=== PATIENT | female | born 1995 | race Caucasian/White ===

== ENCOUNTER 2017-09-09 15:50 | Inpatient (IN) ==
[2017-09-10] MEDS ORDERED: Acetaminophen 325 MG Tablet PO PRN (00:11)
--- NOTE | 2017-09-10 01:47 | P.HPIM ---
History of Present Illness Primary Care Physician: UNKNOWN History of Present Illness: 22 y/o female with a history of MR and autism presented to the ED after have a seizure. Due to patient's autism, history was taken from mom who is at the bedside. She states the patient was at an adult learning class when she fell out of the chair and had a 13 min seizure. When the patient came too she was very lethargic so she brought her to the ED for evaluation. She did have loss of bladder control at the time and 3 episodes of emesis. Mom states it is very hard for the patient to express how she is feeling, so it is unsure if she has any pain. Mom denies any history of seizures. Upon examination patient is sleeping and due to her autism mom asked not to wake her. ROS is limited. Review of Systems unobtainable due to mental condition PMFSH - History History Provided By: Patient - Medical History Medical History: Medical History (Last Reviewed 09/09/17 @ 18:19 by ELLA Real) Autism OCD (obsessive compulsive disorder) Tourette disease - Tobacco History Second Hand Smoke Exposure: No Smoking Status: Never smoker - Alcohol History How Often Do You Have a Drink Containing Alcohol: Never - Substance Use History Substance History: No History of Abuse Medications and Allergies Active Medications: Active Medications Acetaminophen (Tylenol) 650 mg PO Q4H PRN PRN Reason: Temp > 100.4 Lorazepam (Ativan Inj) 1 mg IV.PUSH Q2H PRN PRN Reason: SEIZURES Ondansetron HCl (Zofran Inj) 4 mg IV.PUSH Q6H PRN PRN Reason: NAUSEA OR VOMITING Allergies Allergy/AdvReac Type Severity Reaction Status Date / Time clindamycin Allergy Unknown Verified 09/09/17 16:09 Home Medications Medication Instructions Recorded Confirmed Type Loestrin 1.5 (21) 09/09/17 History Probiotic 09/09/17 History venlafaxine 100 mg PO BID 09/09/17 09/09/17 History Exam Vital signs: Vital Signs 09/10/17 00:00 Temperature 98.1 F Pulse Rate 89 Respiratory Rate 16 Blood Pressure 121/80 Pulse Oximetry 99 Narrative: GENERAL: This is a well-nourished, well-developed patient, who is sleeping SKIN: Warm, dry and intact, no open wounds CARDIOVASCULAR: Regular rate and rhythm without murmurs, gallops, or rubs. RESPIRATORY: Clear to auscultation. No wheezes, rales, or rhonchi. GASTROINTESTINAL: Abdomen soft, distended. MUSCULOSKELETAL: Extremities without clubbing, cyanosis, or edema. NEURO: Autistic. Moves all ext x4 Caprini VTE Risk Assessment Caprini VTE Risk Assessment: No/Low Risk (score <= 1) Caprini Risk Assessment Model: Point Value = 1 Point Value = 2 Point Value = 3 Point Value = 5 Age 41-60 Minor surgery BMI > 25 kg/m2 Swollen legs Varicose veins or History of unexplained or recurrent spontaneous Oral contraceptives or hormone replacement Sepsis (< 1 month) Serious lung disease, including pneumonia (< 1 month) Abnormal pulmonary function Acute myocardial infarction Congestive heart failure (< 1 month) History of inflammatory bowel disease Medical patient at bed rest Age 61-74 Arthroscopic surgery Major open surgery (> 45 min) Laparoscopic surgery (> 45 min) Malignancy Confined to bed (> 72 hours) Immobilizing plaster cast Central venous access Age >= 75 History of VTE Family history of VTE Factor V Leiden Prothrombin [id number] Lupus anticoagulant Anticardiolipin antibodies Elevated serum homocysteine Heparin-induced thrombocytopenia Other congenital or acquired thrombophilia Stroke (< 1 month) Elective arthroplasty Hip, pelvis, or leg fracture Acute spinal cord injury (< 1 month) Prophylaxis Regimen: Total Risk Factor Score Risk Level Prophylaxis Regimen 0-1 Low Early ambulation 2 Moderate Order ONE of the following: *Sequential Compression Device (SCD) *Heparin 5000 units SQ BID 3-4 Higher Order ONE of the following medications: *Heparin 5000 units SQ TID *Enoxaparin/Lovenox 40 mg SQ daily (WT < 150 kg, CrCl > 30 mL/min) *Enoxaparin/Lovenox 30 mg SQ daily (WT < 150 kg, CrCl > 10-29 mL/min) *Enoxaparin/Lovenox 30 mg SQ BID (WT < 150 kg, CrCl > 30 mL/min) AND/OR *Sequential Compression Device (SCD) 5 or more Highest Order ONE of the following medications: *Heparin 5000 units SQ TID (Preferred with Epidurals) *Enoxaparin/Lovenox 40 mg SQ daily (WT < 150 kg, CrCl > 30 mL/min) *Enoxaparin/Lovenox 30 mg SQ daily (WT < 150 kg, CrCl > 10-29 mL/min) *Enoxaparin/Lovenox 30 mg SQ BID (WT < 150 kg, CrCl > 30 mL/min) AND *Sequential Compression Device (SCD) Assessment and Plan - Plan 22 y/o female with a history of MR and autism presented to the ED after have a seizure. Seizure, acute, new onset -Head CT reviewed and unremarkable -Consult neurology for recommendations -Ativan IV prn -seizure precautions -EEG ordered Leukocytosis, possibly reactive, r/o infection, mom states patient has had a cough Wbc 19.3, 82% neutrophils -UA shows contamination, will re order a UA -Blood cultures ordered -Chest x ray ordered -Hold on antibiotics for now -CBC in am Autism, chronic -Resume home medications once med rec is complete -Great patient with a smile, per moms recommendation DVT prophylaxis: SCDs Discussed Condition With: Patient and patient's mom
--- NOTE | 2017-09-10 06:32 | XR ---
EXAM DATE: 09/10/2017 5:54 AM EDT AGE/SEX: 22 years / Female INDICATIONS: Short of breath, difficulty breathing for several days, seizure yesterday CLINICAL DATA: This is the patient's initial encounter. Patient reports that signs and symptoms have been present for 3 days and indicates a pain score of Nonresponsive. MEDICAL/SURGICAL HISTORY: . seizure, autisim None. COMPARISON: No prior exams available for comparison. FINDINGS: A single AP view of the chest demonstrates the lungs to be symmetrically aerated without evidence of mass, infiltrate or effusion. The cardiomediastinal contours are unremarkable. Osseous structures a re intact. There is mild hazy opacity projected over the right central and lower lung. CONCLUSION: Mild hazy opacity projected over the right mid lung and lung base. This may be artifactual and due to overlying breast tissue.. Electronically signed by: Mani Urbano MD 09/10/2017 6:31 AM EDT
--- NOTE | 2017-09-10 08:33 | P.CONNEU ---
History of Present Illness Service: Neurology Primary Care Provider: UNKNOWN Chief Complaint: Seizure History of Present Illness: 22-year-old female with intellectual disability functioning toddler level transferred from [facility] for management of seizure. Patient was at her daycare facility when apparently she had a generalized type convulsion. No previous history of seizures. She does have a history of OCD and is on Effexor. She does have some mood instability. She is given Ativan has been sleepy since that time. No change in her dose of Effexor or change in either medication. She is mainly nonverbal at baseline poor eye contact autistic features. Review of Systems All other systems reviewed negative except as stated in HPI PMFSH - History History Provided By: Family Member - Medical History Medical History: Medical History (Last Reviewed 09/09/17 @ 18:19 by ELLA Real) Autism OCD (obsessive compulsive disorder) Tourette disease - Tobacco History Second Hand Smoke Exposure: No Smoking Status: Never smoker - Alcohol History How Often Do You Have a Drink Containing Alcohol: Never - Substance Use History Substance History: No History of Abuse - Travel History Recent Travel in the [place] Within the Last 8 Weeks: No Recent Travel Out of the Country Within the Last 8 Weeks: No - Immunization History Tetanus Immunization: >5 Years Hx Influenza Vaccine This Season: No Medications and Allergies Active Medications: Active Medications Acetaminophen (Tylenol) 650 mg PO Q4H PRN PRN Reason: Temp > 100.4 Lorazepam (Ativan Inj) 1 mg IV.PUSH Q2H PRN PRN Reason: SEIZURES Ondansetron HCl (Zofran Inj) 4 mg IV.PUSH Q6H PRN PRN Reason: NAUSEA OR VOMITING Last Admin: 09/10/17 01:54 Dose: 4 mg Allergies Allergy/AdvReac Type Severity Reaction Status Date / Time clindamycin Allergy Unknown Verified 09/09/17 16:09 Home Medications Medication Instructions Recorded Confirmed Type Loestrin 1.5/30 (21) 1 tab PO DAILY 09/09/17 09/10/17 History Probiotic 1 cap PO DAILY 09/09/17 09/10/17 History venlafaxine 100 mg PO BID 09/09/17 09/10/17 History Exam Vital signs: Vital Signs 09/10/17 00:00 09/10/17 04:00 Temperature 98.1 F 98.7 F Pulse Rate 89 78 Respiratory Rate 16 16 Blood Pressure 121/80 127/82 Pulse Oximetry 99 98 Intake & Output 09/09/17 09/10/17 09/10/17 18:59 06:59 18:59 Weight 83.4 kg Narrative: Head: Appears grossly normal Neck: Supple, airway widely patent, no obstructive noises. Lungs: Generally clear with good bilateral air movement. Heart: Normal . Abdomen: Soft, no guarding, nondistended. Extremities: Warm, well-perfused, Neuro: Poor eye contact in bed volitionally keeps her eyes closed no gross facial asymmetry moving all limbs symmetric gait not assessed secondary to fall risk - Constitutional no acute distress - Routine HEENT Exam Head: Present: normocephalic Eye: Present: EOMI Results - Imaging Impressions Chest X-Ray 09/10/17 00:00 CONCLUSION: Mild hazy opacity projected over the right mid lung and lung base. This may be artifactual and due to overlying breast tissue.. Review/Management - Diagnosis (1) Intellectual disability Code(s): F79 - Unspecified intellectual disabilities Status: Acute Current Visit: Yes (2) Seizure Code(s): R56.9 - Unspecified convulsions Status: Acute Current Visit: Yes (3) Autism Code(s): F84.0 - Autistic disorder Status: Acute Current Visit: Yes (4) OCD (obsessive compulsive disorder) Code(s): F42.9 - Obsessive-compulsive disorder, unspecified Status: Acute Current Visit: Yes - Review/Management Plan: Sodium, glucose, calcium, magnesium within normal limits. Official report of CT brain scan not available Suspect seizure associated with underlying neurodevelopmental condition. They have not had genetic studies for what I understand Recommendations We will start Tegretol 100 mg p.o. twice daily this can be further titrated to 200 twice daily in the outpatient setting they are from [facility] and can find a neurologist close to them or travel here if necessary. Tegretol and other seizure medication such as Lamictal, Depakote can help with mood stabilization in addition to seizure control. EEG MRI brain if feasible Avoid sleep deprivation No driving or climbing heights or swimming alone Discussed with mother at bedside
[2017-09-10 09:18] LABS: Baso % (Auto) 0.2 % (0.0-2.0); Eos % (Auto) 0.1 % (0.0-4.0); Hematocrit 39.9 % (35.0-46.0); Hemoglobin 13.6 gm/dL (11.6-15.3); Lymph # (Auto) 3.1 th/mm3 (1.0-4.8); Lymph % (Auto) 32.1 % (9.0-44.0); Mean Corpuscular HGB Conc 34.1 % (32.0-36.0); Mean Corpuscular Hemoglobin 27.9 pg (27.0-34.0); Mean Corpuscular Volume 81.9 fL (80.0-100.0); Mean Platelet Volume 7.5 fL (7.0-11.0); Mono # (Auto) 0.7 th/mm3 (0.0-0.9); Mono % (Auto) 7.3 % (0.0-8.0); Neut # (Auto) 5.8 th/mm3 (1.8-7.7); Neut % (Auto) 60.3 % (16.0-70.0); Platelet Count 354 th/mm3 (150-450); Red Blood Count 4.87 mil/mm3 (4.00-5.30); Red Cell Distribution Width 13.5 % (11.6-17.2); White Blood Count 9.7 th/mm3 (4.0-11.0)
[2017-09-10 09:43] LABS: Anion Gap 9 meq/L (5-15); Aspartate Aminotransferase 20 U/L (15-37); Blood Urea Nitrogen 7 mg/dL (7-18); Calcium 9.1 mg/dL (8.5-10.1); Carbon Dioxide 22.9 meq/L (21.0-32.0); Chloride 107 meq/L (98-107); Glomerular Filtration Rate Greater Than 89 mL/min (>89); Glucose,Random 87 mg/dL (74-106); Potassium 3.8 meq/L (3.5-5.1); Sodium 139 meq/L (136-145)
[2017-09-10 09:47] LABS: Alanine Aminotransferase 29 U/L (10-53); Albumin 3.4 g/dL (3.4-5.0); Alkaline Phosphatase 89 U/L (45-117); Total Protein 7.5 g/dL (6.4-8.2)
[2017-09-10] MEDS: carBAMazepine 200 MG Tablet PO SCH ×2 (11:28→21:48)
--- NOTE | 2017-09-10 13:22 | MG ---
cc: Myranda Alejandra MD EEG NUMBER: [id number] REFERRING PHYSICIAN: ELLA Pinto INDICATION: Room 1523 with photic stimulation, awake. Admitted for possible seizure, fell off her chair and started having what sounded like a seizure-like event. History of OCD and Tourette's. 4 mg of Ativan given at 1:54 a.m. DESCRIPTION OF RECORD: The patient has a background rhythm of 7-8 Hz. Quite a bit of movement artifact throughout. Overall, fairly symmetrical background. There is a normal alpha rhythm as well as the EEG progresses, there is a point where she starts yelling, her father calming her down. Photic stimulation does show a positive driving response. No evidence of any epileptic activity. IMPRESSION: Overall, normal appearing EEG with quite a bit of artifact, but no evidence of epileptiform features. Myranda Alejandra MD DF/TL , 01:08 PM , 01:15 PM
--- NOTE | 2017-09-11 07:39 | P.PNNEU ---
Subjective Subjective Comments: No acute events reported No seizure reported Parent sleeping at bedside Active Medications: Active Medications Acetaminophen (Tylenol) 650 mg PO Q4H PRN PRN Reason: Temp > 100.4 Carbamazepine (Tegretol) 100 mg PO BID [facility] Last Admin: 09/10/17 21:48 Dose: 100 mg Lorazepam (Ativan Inj) 1 mg IV.PUSH Q2H PRN PRN Reason: SEIZURES Ondansetron HCl (Zofran Inj) 4 mg IV.PUSH Q6H PRN PRN Reason: NAUSEA OR VOMITING Last Admin: 09/10/17 01:54 Dose: 4 mg Venlafaxine HCl (Effexor) 100 mg PO BID [facility] Last Admin: 09/10/17 21:49 Dose: 100 mg Allergies/Adverse Reactions: Allergies Allergy/AdvReac Type Severity Reaction Status Date / Time clindamycin Allergy Unknown Verified 09/09/17 16:09 Review of Systems All other systems reviewed negative except as stated in HPI Physical Exam Vital signs: Vital Signs 09/10/17 08:00 09/10/17 12:00 09/10/17 16:00 Temperature 97.6 F 98.3 F 98.2 F Pulse Rate 76 93 H 101 H Respiratory Rate 20 20 20 Blood Pressure 105/56 L 114/65 111/61 Pulse Oximetry 98 98 98 09/10/17 20:00 09/11/17 00:00 09/11/17 04:00 Temperature 98.3 F 97.9 F 97.5 F L Pulse Rate 101 H 58 L 75 Respiratory Rate 18 18 20 Blood Pressure 114/69 127/68 131/69 Pulse Oximetry 97 97 97 Intake & Output 09/10/17 09/11/17 09/11/17 18:59 06:59 18:59 Weight 85 kg Other: # Incontinent Bowel Movements 1 Narrative: Head: Appears grossly normal Neck: Supple, airway widely patent, no obstructive noises. Lungs: Generally clear with good bilateral air movement. Heart: Normal . Abdomen: Soft, no guarding, nondistended. Extremities: Warm Neuro: Sleeping in bed, easily arousable avoids interaction or examination, poor eye contact in bed volitionally keeps her eyes closed no gross facial asymmetry moving all limbs symmetric gait not assessed secondary to fall risk - Constitutional no acute distress - Routine HEENT Exam Head: Present: normocephalic Eye: Present: EOMI Objective Laboratory Results - last 24 hr 09/10/17 09/10/17 08:48 08:48 WBC 9.7 RBC 4.87 Hgb 13.6 Hct 39.9 MCV 81.9 MCH 27.9 MCHC 34.1 RDW 13.5 Plt Count 354 MPV 7.5 Neut % (Auto) 60.3 Lymph % (Auto) 32.1 [place] % (Auto) 7.3 Eos % (Auto) 0.1 Baso % (Auto) 0.2 Neut # (Auto) 5.8 Lymph # (Auto) 3.1 [place] # (Auto) 0.7 Eos # (Auto) 0.0 Baso # (Auto) 0.0 WBC Differential . Differential Comment Auto diff final Sodium 139 Potassium 3.8 Chloride 107 Carbon Dioxide 22.9 Anion Gap 9 BUN 7 Creatinine 0.76 Estimated GFR Greater than 89 Random Glucose 87 Calcium 9.1 Total Bilirubin 0.8 AST 20 ALT 29 Alkaline Phosphatase 89 Total Protein 7.5 Albumin 3.4 Review/Management - Diagnosis (1) Intellectual disability Code(s): F79 - Unspecified intellectual disabilities Status: Acute Current Visit: Yes (2) Seizure Code(s): R56.9 - Unspecified convulsions Status: Acute Current Visit: Yes (3) Autism Code(s): F84.0 - Autistic disorder Status: Acute Current Visit: Yes (4) OCD (obsessive compulsive disorder) Code(s): F42.9 - Obsessive-compulsive disorder, unspecified Status: Acute Current Visit: Yes - Review/Management Plan: Sodium, glucose, calcium, magnesium within normal limits. Official report of CT brain scan not available Suspect seizure associated with underlying neurodevelopmental condition. They have not had genetic studies for what I understand Recommendations Continue Tegretol Discharge planning today Can follow-up with us in the outpatient setting 1-2 weeks card given Tegretol and other seizure medication such as Lamictal, Depakote can help with mood stabilization in addition to seizure control. EEG; no epileptic discharges noted MRI brain; patient unable to complete Avoid sleep deprivation No driving or climbing heights or swimming alone Discussed with mother at bedside
[2017-09-11 08:53] VITALS: RESP 16
[2017-09-11] MEDS: carBAMazepine 200 MG Tablet PO SCH (09:17)
[2017-09-11 12:39] VITALS: BP 132/60; PULSE 98; TEMP 98.1; O2SAT 95
--- NOTE | 2017-09-11 16:34 | P.DS ---
Date of admission: 09/10/17 14:59 Primary care physician: UNKNOWN Brief History from admission: 22 y/o female with a history of MR and autism presented to the ED after have a seizure. Due to patient's autism, history was taken from mom who is at the bedside. She states the patient was at an adult learning class when she fell out of the chair and had a 13 min seizure. When the patient came too she was very lethargic so she brought her to the ED for evaluation. She did have loss of bladder control at the time and 3 episodes of emesis. Mom states it is very hard for the patient to express how she is feeling, so it is unsure if she has any pain. Mom denies any history of seizures. Upon examination patient is sleeping and due to her autism mom asked not to wake her. ROS is limited. DS: Medications - Discharge Medications Prescriptions: carbamazepine 100 mg PO BID #30 tab DS: Summary Hospital Course: GENERAL: This is a well-nourished, well-developed patient, who is sleeping SKIN: Warm, dry and intact, no open wounds CARDIOVASCULAR: Regular rate and rhythm without murmurs, gallops, or rubs. RESPIRATORY: Clear to auscultation. No wheezes, rales, or rhonchi. GASTROINTESTINAL: Abdomen soft, distended. MUSCULOSKELETAL: Extremities without clubbing, cyanosis, or edema. NEURO: Autistic. Moves all ext x4 Caprini VTE Risk Assessment Caprini VTE Risk Assessment: No/Low Risk (score <= 1) Caprini Risk Assessment Model: Point Value = 1 Point Value = 2 Point Value = 3 Point Value = 5 Age 41-60 Minor surgery BMI > 25 kg/m2 Swollen legs Varicose veins or History of unexplained or recurrent spontaneous Oral contraceptives or hormone replacement Sepsis (< 1 month) Serious lung disease, including pneumonia (< 1 month) Abnormal pulmonary function Acute myocardial infarction Congestive heart failure (< 1 month) History of inflammatory bowel disease Medical patient at bed rest Age 61-74 Arthroscopic surgery Major open surgery (> 45 min) Laparoscopic surgery (> 45 min) Malignancy Confined to bed (> 72 hours) Immobilizing plaster cast Central venous access Age >= 75 History of VTE Family history of VTE Factor V Leiden Prothrombin [id number] Lupus anticoagulant Anticardiolipin antibodies Elevated serum homocysteine Heparin-induced thrombocytopenia Other congenital or acquired thrombophilia Stroke (< 1 month) Elective arthroplasty Hip, pelvis, or leg fracture Acute spinal cord injury (< 1 month) Prophylaxis Regimen: Total Risk Factor Score Risk Level Prophylaxis Regimen 0-1 Low Early ambulation 2 Moderate Order ONE of the following: *Sequential Compression Device (SCD) *Heparin 5000 units SQ BID 3-4 Higher Order ONE of the following medications: *Heparin 5000 units SQ TID *Enoxaparin/Lovenox 40 mg SQ daily (WT < 150 kg, CrCl > 30 mL/min) *Enoxaparin/Lovenox 30 mg SQ daily (WT < 150 kg, CrCl > 10-29 mL/min) *Enoxaparin/Lovenox 30 mg SQ BID (WT < 150 kg, CrCl > 30 mL/min) AND/OR *Sequential Compression Device (SCD) 5 or more Highest Order ONE of the following medications: *Heparin 5000 units SQ TID (Preferred with Epidurals) *Enoxaparin/Lovenox 40 mg SQ daily (WT < 150 kg, CrCl > 30 mL/min) *Enoxaparin/Lovenox 30 mg SQ daily (WT < 150 kg, CrCl > 10-29 mL/min) *Enoxaparin/Lovenox 30 mg SQ BID (WT < 150 kg, CrCl > 30 mL/min) AND *Sequential Compression Device (SCD) Assessment and Plan 22 y/o female with a history of MR and autism presented to the ED after have a seizure. Seizure, acute, new onset -Head CT reviewed and unremarkable -Consult neurology appreciate recommendations, started tegretol 100 mg po tid. No more seizures. EEG diana seizures. Patient is DC home on tegretol. To f./ u as OP with PCP and neuro. Cleared by Dr Penaloza neuro for dC -Ativan IV prn for breakthrough seizures -seizure precautions -EEG ordered Leukocytosis, possibly reactive, r/o infection, mom states patient has had a cough WBCs 19.3, 82% neutrophils on admission likely reactive -UA shows contamination, will re order a UA -Blood cultures NTD -Chest x ray ordered -Hold on antibiotics for now -CBC in am Autism, chronic -Resume home medications once med rec is complete -Great patient with a smile, per moms recommendation DVT prophylaxis: SCDs Discussed Condition With: Patient and patient's mom - Time Spent with Patient Total time spent providing and/or coordinating discharge services: Greater than 30 minutes - Quality: VTE Deep Vein Thrombosis/Pulmonary Embolism Present on Admission: No Exam Vital signs: Vital Signs 09/10/17 20:00 09/11/17 00:00 09/11/17 04:00 Temperature 98.3 F 97.9 F 97.5 F L Pulse Rate 101 H 58 L 75 Respiratory Rate 18 18 20 Blood Pressure 114/69 127/68 131/69 Pulse Oximetry 97 97 97 09/11/17 08:00 09/11/17 12:00 Temperature 97.8 F 98.1 F Pulse Rate 93 H 98 H Respiratory Rate 16 16 Blood Pressure 110/69 132/60 Pulse Oximetry 97 95 Intake & Output 09/10/17 09/11/17 09/11/17 18:59 06:59 18:59 Weight 85 kg Other: Date of Last Bowel Movement 09/11/17 # Bowel Movements 1 # Incontinent Bowel Movements 1 Results Procedures completed during hospitalization: no procedures Labs on day of discharge: Preliminary micro results at discharge 09/10/17 08:43 Aerobic Blood Culture - Preliminary Blood - Peripheral No growth in 1 day Anaerobic Blood Culture - Preliminary No growth in 1 day 09/10/17 08:48 Aerobic Blood Culture - Preliminary Blood - Peripheral No growth in 1 day Anaerobic Blood Culture - Preliminary No growth in 1 day - Impressions ITS Impressions Chest X-Ray 09/10/17 00:00 CONCLUSION: Mild hazy opacity projected over the right mid lung and lung base. This may be artifactual and due to overlying breast tissue.. Discharge Plan - Discharge Disposition Patient Disposition: Discharge Home - Discharge Condition Condition: Stable - Discharge Order Discharge Orders: Discharge Order (Routine); Ordered 09/11/17 Ordered By: Cata Gillespie - Discharge Details Anticipated Discharge Date: 09/11/17 - Physicians Team Primary Care Provider: UNKNOWN, Attending Provider: Cata Gillespie Other Providers: Dante Choudhury MD - Rxs /Orders / Referrals /Forms Prescriptions: New carbamazepine 200 mg Tablet 100 mg PO BID Qty: 30 RF: 0 Continue Loestrin 1.530 (21) 1 tab PO DAILY Probiotic 1 cap PO DAILY venlafaxine 100 mg Tablet 100 mg PO BID Referrals: Dante Choudhury MD [Physician] - See Instructions ( Please call the physician's office to book the appointment to be seen within [1 week ].) UNKNOWN, [Primary Care Provider] - See Instructions ( Please call the physician's office to book the appointment to be seen within [2-3 days].) - Discharge Instructions Patient Printed Instructions: Carbamazepine (By mouth), New-Onset Seizure in Adults (DC)
== END 2017-09-11 17:35 | disposition home or self-care (01) ==
LOC: N05 23:10 → NEDDLT 23:10
PROVIDERS: ADMIT Hospitalist; ATTEND Hospitalist